=== PATIENT | female | born 1930 | race Caucasian/White ===

== ENCOUNTER 2016-09-30 11:00 | Inpatient (IN) | payer MEDICARE, BC ==
[~2016-09-30] VITALS: Ht 160 cm; Wt 70.5 kg
--- NOTE | ~2016-09-30 | DS ---
PATIENT'S NAME: DAVID LENZ [facility] AGE: 86 Y [address] ROOM: [place] [address] LOCATION: [facility] ADMIT DATE: 10/18/2016 Discharge Summary DISCHARGE DATE: 10/21/2016 FAMILY PHYSICIAN: Radha Mendez MD ATTENDING PHYSICIAN: Jeremie Montanez PRIMARY DIAGNOSIS: Degenerative joint disease of the right knee. SECONDARY DIAGNOSES: 1. IBS. 2. Anxiety. 3. Hypothyroidism. 4. Hypertension. 5. GERD. 6. Chronic kidney disease stage III. 7. Osteoporosis. PROCEDURE PERFORMED: Right total knee arthroplasty. HISTORY: The patient is an 86-year-old female, who presents with advanced right knee degenerative joint disease and associated severely compromised activities of daily living. The patient has decided to proceed with total knee arthroplasty after having been thoroughly counseled regarding the risks, benefits, limitations and alternatives. Please refer to the outpatient clinic notes and admission history and physical for this patient. HOSPITAL COURSE: The patient underwent a right total knee arthroplasty on without complications. Spinal anesthesia plus adductor canal block plus periarticular local anesthesia was utilized. The patient received 24 hours of perioperative prophylactic antibiotics and remained hemodynamically stable, neurovascularly intact throughout the entire hospital course. The postoperative prophylactic deep venous thrombosis prophylaxis consisted of Xarelto, early mobilization and pneumatic compression devices. Daily physical therapy for gait training, transfer training range of motion and quadriceps isometric exercises were received. The patient progressed well in physical therapy. On the date of discharge, 10/21/2016, the incision at the knee was healing well and showed no signs of infection. DISPOSITION: PCU. DISCHARGE ACTIVITY: The patient is to bear weight as tolerated with range of motion and quadriceps isometric exercises as instructed. The operative extremity is to be elevated at least 90% of the day. There is to be sterile 4x4 gauze dressings to the incision daily. Dr. Montanez is to be notified immediately if there is any increased pain, fevers, chills erythema or PATIENT'S NAME: DAVID LENZ [facility] AGE: 86 Y [address] ROOM: [place] [address] LOCATION: [facility] ADMIT DATE: 10/18/2016 Discharge Summary DISCHARGE DATE: 10/21/2016 FAMILY PHYSICIAN: Radha Mendez MD ATTENDING PHYSICIAN: Jeremie Montanez. The patient is to comply with gentle range of motion until followup. DISCHARGE MEDICATIONS: 1. Xarelto 10 mg 1 tablet p.o. daily x12 days for postoperative DVT prophylaxis. 2. Nucynta 50 mg 1 tablet p.o. every 3 hours p.r.n. for pain. 3. Tramadol 50 mg 1 tablet p.o. every 8 hours p.r.n. for pain. 4. Diazepam 5 mg one-half tablet p.o. every 6 hours p.r.n. for muscle spasms. 5. She is then instructed to continue all her other preadmission medications as instructed by her Internal Medicine doctor. FOLLOWUP: Followup appointment is to be with Dr. Montanez's office 1-week subsequent to dismissal from transitional care unit for her initial postoperative evaluation with x-rays of the knee and suture removal. RAY FISHER PA-C FOR MD MAURICIO ACOSTA/diana /[id number] d: 11/01/16 0438 t: 11/01/16 0913, DISCHARGE SUMMARY
--- NOTE | ~2016-09-30 | OR ---
PATIENT'S NAME: DAVID MARTINEZ [facility] AGE: 86 Y [address] ROOM: [address] [address] LOCATION: [facility] ADMIT DATE: 10/18/2016 OR/Procedure Report DISCHARGE DATE: FAMILY PHYSICIAN: Radha Mendez MD ATTENDING PHYSICIAN: LOLA MORILLO SURGEON: Lola Morillo MD CERTIFIED CONTROL SYSTEMS TECHNICIAN: 1. JOSEPH Moore. 2. Lola Washington. DATE OF PROCEDURE: 10/18/2016 PREOPERATIVE DIAGNOSIS: Degenerative joint disease, right knee. POSTOPERATIVE DIAGNOSES: 1. Degenerative joint disease, right knee. 2. Severe osteopenia. OPERATION: Right total knee arthroplasty with computer navigation. ANESTHESIA: Spinal anesthesia plus adductor canal block plus periarticular local anesthesia (ropivacaine with epinephrine). ESTIMATED BLOOD LOSS: Less than 10 mL. DRAIN: None. SPECIMEN: None. COMPLICATIONS: None. IMPLANT SYSTEM: Seadrift Triathlon. 1. Size 2 right posterior stabilized femoral component. 2. Size 2 universal modular tibial baseplate. 3. A 13 mm posterior stabilized size 2 X3 tibial polyethylene insert. 4. A 29 mm oval X3 patella component. INDICATIONS FOR SURGERY: Ms. David Martinez is an 86-year-old female who presents with advanced right knee degenerative joint disease and associated severely compromised activities of daily living. The patient has decided to proceed with knee replacement after having been thoroughly counseled regarding the associated risks, benefits, and limitations. We have specifically reviewed the risks and implications of infection, deep venous thrombosis, pulmonary embolism, mortality, neurovascular complications, blood transfusion (and associated potential for disease transmission or transfusion reaction), stiffness, instability, mechanical deterioration of the components (due to wear and or loosening), and the potential need for revision. We have also PATIENT'S NAME: DAVID MARTINEZ [facility] AGE: 86 Y [address] ROOM: [address] [address] LOCATION: [facility] ADMIT DATE: 10/18/2016 OR/Procedure Report DISCHARGE DATE: FAMILY PHYSICIAN: Radha Mendez MD ATTENDING PHYSICIAN: LOLA MORILLO emphasized the importance of active involvement and compliance with post- operative physical therapy as a means of optimizing range of motion and functional recovery. Informed consent has been granted. DESCRIPTION OF PROCEDURE: The patient was positioned supine after administration of anesthesia and prophylactic antibiotics. A well-padded pneumatic tourniquet was placed around the right proximal thigh, and the right lower extremity was prepped and draped with vigilant sterile technique. The patient's name as well as the intended operative side and procedure were confirmed with a verbal time-out involving myself, the circulating nurse, the scrub nurse, and the anesthesiologist. Examination under anesthesia demonstrated a large effusion. There was no erythema. There was no abnormal warmth. There were no active skin lesions or masses. Range of motion under anesthesia was from 20 degrees of hyperextension to 130 degrees of flexion. There was 1 cm of lateral collateral ligament laxity. There were 5 mm of medial collateral ligament laxity. The right lower extremity was elevated and exsanguinated with an Esmarch wrap, and the pneumatic tourniquet was inflated to 300mmHg. The knee was approached through a longitudinal midline incision. A medial parapatellar arthrotomy was performed and the patella was everted. Examination of the joint space demonstrated a large amount of benign-appearing translucent synovial fluid. There was a large popliteal cyst which I decompressed by dilating its point of communication with the posteromedial joint capsule. There was moderate chondrocalcinosis at the patella, femoral trochlea, medial meniscus, lateral meniscus remnant, medial tibial plateau, and medial femoral condyle. There were moderate grade 3 degenerative changes extending transversely across the equator of the patella. There were moderate grade 3 degenerative changes throughout the femoral trochlea. There was a 4 x 12 mm region of full- thickness articular cartilage loss at the posterolateral aspect of the medial femoral condyle and a 1 x 3 cm region of full-thickness articular cartilage loss at the anterolateral margin of the medial femoral condyle and distal lateral aspect of the medial femoral trochlea. There were moderate grade 3 degenerative changes at the lateral two-thirds of the medial tibial plateau. There was mild chondrocalcinosis at the medial tibial plateau. There was a large osteophyte at the lateral femoral condyle. There was a small osteophyte at the medial tibial plateau. The patient was noted to have severe generalized osteopenia. There was very thin dermis, and very loose moderately abundant subcutaneous adipose tissue. There was full-thickness loss of articular cartilage throughout the lateral femoral condyle and lateral tibial plateau. In addition, there had been erosion of approximately 5 mm of subchondral bone from the lateral tibial plateau. PATIENT'S NAME: DAVID MARTINEZ [facility] AGE: 86 Y [address] ROOM: [address] [address] LOCATION: [facility] ADMIT DATE: 10/18/2016 OR/Procedure Report DISCHARGE DATE: FAMILY PHYSICIAN: Radha Mendez MD ATTENDING PHYSICIAN: LOLA MORILLO Remnants of the menisci and cruciate ligaments were excised. The CENX computer navigation femoral tracker was pinned in place at the distal aspect of the femoral trochlea. Absence of motion between the femur and the tracking device was confirmed manually and visually. Femoral osseous landmarks were obtained in order to calibrate the computer navigation system. Landmarks included the center of rotation of the ipsilateral hip, the center-point of the distal femur, the femoral AP axis, 57 points on the medial femoral condyle articular surface, and 57 points on the lateral femoral condyle articular surface. The CENX computer navigation system was subsequently utilized to position the distal femoral resection block such that the distal femoral resection was performed perfectly perpendicular to the femoral mechanical axis. The distal femoral resection was performed with a Dormir oscillating saw. The CENX computer navigation tibial tracker was pinned in place at the anterior aspect of the tibial plateau. Absence of motion between the tibia and the tracking device was confirmed manually and visually. Tibial osseous landmarks were obtained in order to calibrate the computer navigation system. Landmarks included the center-point of the tibial plateau, the AP tibial axis, 57 points on the medial tibial plateau articular surface, 57 points on the lateral tibial plateau articular surface, the medial malleolus, and the lateral malleolus. The CENX computer navigation system was subsequently utilized to position the proximal tibial resection block such that the proximal tibial resection was performed perfectly perpendicular to the tibial mechanical axis. The proximal tibial resection was performed with a Quikly Precision oscillating saw. Perpendicularity of the tibial resection with respect to the tibial shaft axis was reconfirmed by inserting a spacer- block attached to an extramedullary guide cecy. External rotation of the anterior and posterior femoral resections was set parallel to the epicondylar axis and carefully adjusted in order to create a rectangular flexion gap. The box resection was performed with a reciprocating saw. Anterior and posterior chamfer resections were performed with the oscillating saw. Posterior condyle osteophytes were excised with an osteotome. All other osteophytes were excised with a rongeur. Resection of all remnants of the menisci was reconfirmed. Flexion and extension gaps were confirmed to be symmetric and well balanced with a spacer-block technique. The patella resection was performed with an oscillating saw such that the composite thickness of the reconstructed patella was equivalent to the thickness of the [place] patella. Patella tracking was optimal, and there was no need for a lateral retinacular release. All trial components were removed and all prepared osseous surfaces were PATIENT'S NAME: DAVID MARTINEZ [facility] AGE: 86 Y [address] ROOM: [place] [address] LOCATION: [facility] ADMIT DATE: 10/18/2016 OR/Procedure Report DISCHARGE DATE: FAMILY PHYSICIAN: Radha Mendez MD ATTENDING PHYSICIAN: LOLA MORILLO thoroughly irrigated with pulsatile saline lavage and dried prior to cementing all three components in a single stage using Quikly Simplex cement containing pre-mixed tobramycin. All extruded excess cement was removed. The entire joint space was thoroughly inspected and thoroughly irrigated with bacteriostatic pulsatile saline lavage to assure that there was no residual debris of any sort. Final range of motion was from full extension (with no residual passive hyperextension) to 130 degrees of flexion. Patella tracking was reconfirmed to be optimal. There was excellent anteroposterior stability at 90 degrees of flexion. There was 1 mm of medial lift-off to valgus stress in full extension. There was 0 mm of lateral lift-off to varus stress in full extension. The arthrotomy was closed with multiple simple and [id number] interrupted #1 Vicryl. Subcutaneous tissues were thoroughly re-irrigated with bacteriostatic pulsatile saline lavage. Subcutaneous tissues were re- approximated with simple buried interrupted #0 Vicryl sutures. The skin was closed with simple buried interrupted 2-0 Vicryl sutures followed by surgical rickey. The dressing consisted of Xeroform gauze, 4x4 gauze, ABD pads and two 6-inch Dayday Wraps. There were no intra-operative complications. MD JORDAN ACOSTA/diana /[id number] d: 10/18/16 1823 t: 10/25/16 2114, OPERATIVE SUMMARY
[2016-09-30] MEDS ORDERED: ACETAMINOPHEN1 EAC1 PO (11:03)
[2016-09-30] MEDS ORDERED: TYLENOL EXTRA500 MG PO (11:03)
[2016-09-30] MEDS ORDERED: PRILOSEC20 MG PO (11:04)
[2016-09-30] MEDS ORDERED: ZEBETA5 MG PO (11:04)
[2016-09-30] MEDS ORDERED: LEXAPRO10 MG PO (11:04)
[2016-09-30] MEDS ORDERED: LEVOTHROID(SYN75 MCG PO (11:04)
[2016-09-30] MEDS ORDERED: TUMS REGULAR ST1 TAB PO (11:05)
[2016-09-30] MEDS ORDERED: VITAMIN D-32000 UNI1 PO (11:05)
[2016-09-30] MEDS ORDERED: XANAX0.5 MG PO (11:05)
[2016-09-30] MEDS ORDERED: MIRALAX17 GM PO (11:06)
[2016-09-30] MEDS ORDERED: ACIDOPHILUS1 EAC3 PO (11:06)
--- NOTE | 2016-10-18 17:32 | NUR ---
Pt here fro PACU at 1325. She had spinal that is worn off now. VS for you will be 3rd hrly at 1910. Pt is on 1 liter of O2. She denies pain. Had norco in PACU and was nauseated at 1325. Zofran given and nausea subsided. Pt says she gets nauseated easily from pain meds. Changed to nucynta and 50 mg given at 1710 for anticipated pain. CSM WNL. Dressing dry and intact. Ice to knee. No void yet. Will get up soon. Pt has Rt upper arm power glide IV. She has taken po fluids, jello and now ordered soup. Her plan is to go to TCU when discharged. Uses IS at 1500. Does bed exercises
--- NOTE | 2016-10-19 05:37 | NUR ---
Significant Event: Dressing is clean, dry and intact. CSM WNL. Voids without difficulty. Vomited at the beginning of the shift. Zofran at 1900, feeling better now. On 1 L of oxygen nasal cannual. Nucynta last at 0455. Follow up:
--- NOTE | 2016-10-19 09:01 | NUR ---
10/18 Introduced self to pt. Instrusted her to do 100 ankle pumps/hour and 10 breaths/hour using the Incentive Spirometer. She has all equipment, plans to go to TCU. Yeimi informed Anya, Financial Operations Clerk, who said she would tell Cherrie Financial Operations Clerk.
--- NOTE | 2016-10-19 09:30 | NUR ---
RECEIVED REFERRAL THAT PATIENT WILL NEED TO GO TO TCU. I NOTIFIED AMPARO ON TCU AND SHE DOES NOT ANTICIPATE ANY BEDS UNTIL Monday10/24/16. SHE WILL [place]KC ON THIS AND GET BACK TO ME.
--- NOTE | 2016-10-19 14:30 | NUR ---
RECEIVED CALL FROM AMPARO ON TCU AND SHE TELLS ME THAT THEY WILL NOT BE ABLE TO ACCEPT DAVID THEY ARE AT 14 AND DO NOT HAVE THE STAFF TO TAKE MORE PATIENT'S. I SPOKE TO Jose Guadalupe RUIZ AND UPDATED HIM. I WILL MEET WITH PATIENT TO TALK TO HER ABOUT OPTIONS THAT ARE AVAILABLE.
--- NOTE | 2016-10-19 14:52 | NUR ---
Significant Event: pt alert and oriented. up in the room with 1 assist. hiral well. voids well no bm today. nucynta for pain. will update you with time. tsu when ready. Follow up:
--- NOTE | 2016-10-19 15:00 | NUR ---
I MEET WITH DAVID AND UPDATED HER THAT TCU IS FULL AND GAVE HER CHOICES OF SNF IN [place]. SHE TELLS ME THAT SHE DOES NOT REALLY KNOW ANYTHING ABOUT THE SNF IN [place] BUT WANTS TO GO SOME PLACE THAT "I WILL GET GOOD THERAPY." I OFFERED TO CONTACT SHE CHILDREN AND SHE DOES NOT WANT ME TO CALL THEM AT THIS TIME. PRESENTED TO HER THE OPTION OF [facility] AND SHE IS IN AGREEMENT TO THIS.I NOTIFIED [facility] SN[facility] AND SPOKE TO RAY SHE REPORTS THAT THEY HAVE A FEMALE BED. SHE WOULD LIKE FOR ME TO FAX INFO TO HER SHE WILL REVIEW IT AND GET BACK TO ME.
--- NOTE | 2016-10-20 04:41 | NUR ---
Significant Event: Dressing is clean, dry and intact. CSM WNL. Voids without difficulty. 1 assist with transfers. Slight nausea-Zofran at 0036. On room air. Valium at 2205. Nucynta last at 0337. Follow up:
--- NOTE | 2016-10-20 10:00 | NUR ---
RECEIVED CALL FROM Jose Guadalupe RUIZ HE INFORMS ME THAT HE HAS BEEN DIRECTED THAT PATIENT IS NOT TO GO TO [facility] AND WILL STAY ON [address]. I RECEIVED CALL FROM RAY AT [facility] SHE REPORTS THAT THEY WILL ACCEPT PATIENT ONCE SHE IS MEDIALLY READY FOR DISCHARGE.
--- NOTE | 2016-10-20 17:31 | NUR ---
Significant Event: Ambulates with SBA and walker. Dressing changed, rickey intact. Ez wrap ice at all times. Voids without difficulty. No BM. Nucynta last at 0950, Tylenol 1000mg last at 1701. C/O nausea throughout shift last Zofran at 1327, Refused offer of Phenegran as she would rather have at bedtime because it will make her too sleepy. Titrated to room air while awake. Hypotensive this am after shower. Follow up:
--- NOTE | 2016-10-21 04:14 | NUR ---
Shift Summary: Patient can ambulate with one assist. Good pain control with Nycenta. Had nausea at beginning of shift. Relieved with Zofran. Patient passing gas and states she feels like she needs to have a BM. Doesn't have any PRN anticonstipation medication ordered. Patient refused prune juice.
--- NOTE | 2016-10-21 09:00 | NUR ---
RECEIVED CALL FROM LEONEL ON TCU SHE INFORMS ME THAT THEY CAN ACCEPT PATIENT TODAY TO TCU BETWEEN [phone]. I SPOKE MECCA LUX ON 3N AND UPDATED HER. TURNER RUIZ IS AWARE OF THIS AND WILL COMPLETE THE ORDERS. PATIENT'S PRIMARY NURSE WILL INFORM PATIENT AND UPDATED HER.
--- NOTE | 2016-10-21 09:40 | NUR ---
PT IS ALERT AND ORIENTED. UP WITH 1 ASSIST USES WALKER AND GAIT BELT. TAKES TYLENOL FOR PAIN ALSO DOES NUCYNTA IF NEEDED. DRESSING TO RT KNEE INTACT. ICE TO KNEE AT ALL TIMES. COOPERTIVE AND PLEASANT. LIVES AT HOME ALONE.
--- NOTE | 2016-10-21 11:27 | NUR ---
PT TRANSFERED TO TCU PER WHEELCHAIR.
== END 2016-10-21 10:45 | DRG 470 ==
LOC: G3N 10-18 06:46
PROVIDERS: ADMIT Orthopaedic Surgery
PROC: 0SRC0JZ Replacement of Right Knee Joint with Synthetic Substitute, Open Approach (ICD-10-PCS; principal; 2016-10-18)
DX: M17.11 Unilateral primary osteoarthritis, right knee (principal); I12.9 Hypertensive chronic kidney disease with stage 1 through stage 4 chronic kidney disease, or unspecified chronic kidney disease; F41.9 Anxiety disorder, unspecified; K58.9 Irritable bowel syndrome, unspecified; N18.9 Chronic kidney disease, unspecified; E03.9 Hypothyroidism, unspecified; L25.9 Unspecified contact dermatitis, unspecified cause; M85.80 Other specified disorders of bone density and structure, unspecified site
CPT/HCPCS: C1713; C1751; C1776; J1100; J1170; J1885; J2250; J2405; J2795; J3370; J7050; J7120

== ENCOUNTER 2016-10-21 10:46 | Inpatient (IN) | payer MEDICARE, BC ==
[~2016-10-21] VITALS: Ht 160 cm; Wt 71.7 kg
--- NOTE | ~2016-10-21 | DS ---
PATIENT'S NAME: DAVID LENZ [facility] AGE: 86 Y [address] ROOM: [facility] [place] [place], [place] [address] LOCATION: ADMIT DATE: 10/21/2016 Discharge Summary DISCHARGE DATE: 11/01/2016 FAMILY PHYSICIAN: Radha Mendez MD ATTENDING PHYSICIAN: Jeremie Montanez PRIMARY DIAGNOSES: At this hospitalization are, 1. Status post right total knee arthroplasty. 2. Essential hypertension. 3. Anxiety. 4. Need for physical therapy. SUMMARY OF HOSPITALIZATION: This is an 86-year-old female, who was admitted to the transitional care unit after an uneventful right total knee arthroplasty. The patient received 10 days of physical and occupational therapy. She was maintained on Xarelto for DVT prophylaxis. Today, she is ready for discharge, and will follow up with her orthopedic surgeon's office, Dr. Montanez. She did have a transient rash that developed on her back, which was felt to be contact dermatitis and improved with topical hydrocortisone cream. Time dedicated to this patient's encounter is 15 minutes. MD MIKE RILEY/diana /[id number] d: 11/02/16 0024 t: 11/06/16 1532, DISCHARGE SUMMARY
[~2016-10-21 10:46] MED LIST: ACETAMINOPHEN1 EAC1 PO; ACIDOPHILUS1 EAC3 PO; LEVOTHROID(SYN75 MCG PO; LEXAPRO10 MG PO; MIRALAX17 GM PO; PRILOSEC20 MG PO; TUMS REGULAR ST1 TAB PO; TYLENOL EXTRA500 MG PO; VITAMIN D-32000 UNI1 PO; XANAX0.5 MG PO; ZEBETA5 MG PO
--- NOTE | 2016-10-21 17:38 | NUR ---
D: Nursing admission I: Nursing interventions provided to support the patient's individual plan of care R: MOBILITY-- up with standby assist x1 gait belt and walker NUTRITION-- regular SKIN/INCISIONS/WOUNDS-- right knee, dressing change daily dry gauze SELF CARES-- staff to assist as needs BOWEL/BLADDER-- continent RESPIRATORY-- keep sats greater than 90%, no o2 on admission PAIN-- right knee PSYCHOSOCIAL-- pleasent and cooperative COGNITION-- oriented x3 SPECIAL NEEDS-- BLEEDING-- xarelto x 12 days SENSORY IMPAIRMENTS/DENTAL NEEDS: TEACHING NEEDS-- INFECTION CONCERNS: incision RISK FOR ELOPEMENT: none NEED FOR BED/MOVEMENT ALARM: none DISMISSAL PLANS: home alone Other: P: Current plan of care reviewed and updated 10/21/16 Jason Antunez rn
--- NOTE | 2016-10-22 01:47 | NUR ---
Significant Event: Patient is alert and oriented. Answers questions appropriately. Pleasant and cooperative with cares. Dressing to right knee is dry and intact. Vital signs stable. Transfers wiith one assist with gait belt and walker. Patient had concerns of pain to knee and anxiety at HS, given tylenol and valium as ordered. Follow up:
--- NOTE | 2016-10-22 15:06 | NUR ---
Significant Event: Patient alert and oriented. Up with 1 assist. Right knee has rickey. Guaze with tubigrip changed today. Taking Tylenol and Nucenta for pain. Follow up:
--- NOTE | 2016-10-23 04:18 | NUR ---
Significant Event:A/O. 1 assist with gaitbelt and walker. Shower this evening. [place] to Right knee intact covered with guaze and tubigrip. Vital signs stable on room air. Nucynta and valium at HS for pain relief. Call light within reach. Follow up:
--- NOTE | 2016-10-23 16:03 | NUR ---
Significant Event: Patient alert and oriented. 1 assist. Taking Nucenta and Tylenol for pain. Right knee has rickey. guaze and tubigrip changed. Follow up:
--- NOTE | 2016-10-24 01:50 | NUR ---
Significant Event:A/O. 1 assist with gb and walker. Royer hose off hs. Foot pumps on. Ice to right knee for comfort. Ferguson intact, no drainage. covered by guaze and tubigrip. Nucynta and valium at HS for pain control. Call light within reach. Follow up:
--- NOTE | 2016-10-24 12:43 | NUR ---
Student nurse provided patient cares from 0600 to 1230. Mima De Leon RN, [facility] Instructor
--- NOTE | 2016-10-24 14:39 | NUR ---
Significant Event:A/0 X 3, NUCENTA REQUESTS FOR PAIN, 1 ASSIST WALKER/GB, SHOWER THIS AM BY OT, LUMA TO L)KNEE DRY AND INTACT, ICE TO KNEE. GUAZE AND TUBIGRIP TO KNEE. DEVANG HOSE ON. Follow up:
--- NOTE | 2016-10-24 16:18 | NUR ---
86 y/o (spouse March 2015) from [place] who lives alone in a tri-level home in [place]. Patient is followed by and Hospitalists after having elective r) knee replacement surgery. Patient admitted to TCU from [address] [place] [address] on Monday10-21-16 for continued OT/PT. She is a full code. She has medicare and a supplemental policy. She does not have a Retail Client Manager Care policy. Patient has a customer engagement representative q other week. She has a quad cane, standard walker, 4 wheeled walker with bench seat, shower chair with arms and back. She uses the stairs in her garage and there is no railing. D-i-l from [place] was present and SW suggested a railing get installed prior to d/c. Patient has a son in [place] and a son in [place]. Her who a year and a half ago had 5 children. His daughter from lymphoma and his other 4 kids all live out of state. patient assumed she could have HHC for therapy upon d/c. SW explained that prefers outpatient therapy upon d/c. Patient states her had HHC so she thought she could have HHC (he did not have a knee replaced). patient indicates her neighbors are helpful but all work residency coordinator. patient states she has a [employer] affiliation, however did not attend for a long time due to her husbands illness and she stayed home to care for him. discussed the [employer] bus or Taxi to get patient to outpatient therapy, but patient not open to this option and wants HHC. Explained to [id number] and patient that and/or Guy RUIZ would give further direction re: HHC vs outpatient therapy. Also discussed option of respite care at an [facility], where the room is furnished and she could go stay for 1-4 weeks for recovery, once her TCU stay is completed. Out of pocket cost would be approx $125 per day. Patient then talked about selling her home and having an auction and moving to a NH. D-I-L supportive of SW suggestions and SW reminded patient we will take it a day at a time. Therapies estimate d/c could be Monday10-28-16 to home alone.
--- NOTE | 2016-10-25 04:10 | NUR ---
Significant Event:A/O. 1 assist with gaitbelt and walker. R) knee stapled, well approximated covered with guaze and tubigrip. Ice applied for comfort. Royer hose off at HS. Nucynta and valium at HS for pain control. Call light within reach. Follow up:
--- NOTE | 2016-10-25 13:39 | NUR ---
Significant Event: Alert/oriented. VSS. 1a walker/gb. Right knee incision with rickey approx, dry gauze and tubigrip CDI. Nucynta prn for pain control this shift. No c/o nausea or vomitting this shift. Follow up:
--- NOTE | 2016-10-26 01:47 | NUR ---
Significant Event: Patient is alert and oriented. Transfers with one assist with gait belt and walker. Dressing to right knee clean, dry and intact. Ice applied at all times. DEVANG hose off at HS. Nucynta and valium givenat HS. Follow up:
--- NOTE | 2016-10-26 12:20 | NUR ---
Significant Event: Alert/oriented. VSS. Right knee incision with rickey covered with dry gauze and tubigrip. Copius ice packs to right knee this shift. TEDs on. C/o increase pain to left leg; education on compensation and using good leg and shoulders more during therapy. [place] updated regarding increase pain, states to keep educated patient and communicate with therapy to educate patient, continue with prn pain medications. Plan for discharge on Monday to home with outpatient therapy. Follow up:
[2016-10-26 20:44] LABS: ADENOVIRUS F 40/41 Not Detected (Not Detect); ASTROVIRUS Not Detected (Not Detect); C DIFFICILE TOXIN A/B Not Detected (Not Detect); CAMPYLOBACTER SPECIES Not Detected (Not Detect); CRYPTOSPORIDIUM Not Detected (Not Detect); CYCLOSPORA CAYETANENSIS Not Detected (Not Detect); E. COLI (EPEC) Not Detected (Not Detect); E. COLI (ETEC) Not Detected (Not Detect); E. COLI (STEC) Not Detected (Not Detect); ENTAMOEBA HISTOLYTICA Not Detected (Not Detect); GIARDIA LAMBLIA Not Detected (Not Detect); NOROVIRUS GI/ GII Not Detected (Not Detect); PLESIOMONAS SPECIES Not Detected (Not Detect); ROTAVIRUS A Not Detected (Not Detect); SALMONELLA SPECIES Not Detected (Not Detect); SAPOVIRUS Not Detected (Not Detect); SHIGELLA AND EIEC Not Detected (Not Detect); VIBRIO CHOLERAE Not Detected (Not Detect); VIBRIO SPECIES Not Detected (Not Detect); YERSINIA ENTEROCOLITICA Not Detected (Not Detect)
--- NOTE | 2016-10-27 01:22 | NUR ---
Significant Event: Patient is alert and oriented. Pleasant and cooperative with cares. Transfers with one assist with gait belt and walker. Dressing to right knee clean and intact. Ice applied at all times. DEVANG hose off at HS. Nucynta and valium given at HS. Follow up:
--- NOTE | 2016-10-27 12:48 | NUR ---
call rec'd from jaovhlff-cu-upo Candi of [place] [phone]. She inquired about d/c plan and outpatient therapy vs [facility]. Explained the rationale for outpatient therapy and she voiced understanding. D-i-l states her is retired and will drive from [place] to take his mom to therapy. Other son in [place] may be able to work around her therapy schedule as well. # for [employer] [facility] [employer] given to minal-l to call to see if anyone available for hire, to transport patient to therapy. D-i-l states patient no longer drives. team meeting this am and OT/PT recommend dismissal mid next week, like Monday11-02-16. Patient has had increased complaints of pain the past 2 days. Has poor activity tolerance. Has not done stairs yet or standing exercises. Also in isolation for diarrhea/flu like symptoms, should be out of isolation tomorrow. [place] will come out today. SW Updated d-i-l Candi to teams recommendations for dismissal mid next week, if medically ok to d/c at that time. JosepiJovanil in agreement to plan. Harmony Jennings to be delivered daily to patients room.
--- NOTE | 2016-10-27 16:51 | NUR ---
Significant Event:A/0 X 3, 1 ASSIST GB/WALKER, SHOWER THIS AM WITH OT, LUMA OUT KNEE- BENZOIN AND STERISTRIPS PLACED, 1+EDEMA DEVANG HOSE ON, PT/OT SERVICES, NUCENTA GIVEN FOR PAIN REQUESTED. Follow up:
--- NOTE | 2016-10-28 02:18 | NUR ---
Significant Event: Up with 1 assist/gb/walker. Selene are out and steri strips in place well approximated. Refuses foot pumps @ night. Requested [employer] @ [phone]. Wears DEVANG hose. VSS. Eats well. Follow up:
--- NOTE | 2016-10-28 12:12 | NUR ---
therapists recommends a FWW for a short time after d/c. SW contacted [employer] and left a message to see if they have one available to use. JUSTIN contacted luis Christopher and she will also explore if local charities or friends have a FWW for patient to borrow upon d/c. Candi has phone # and address for [employer].
--- NOTE | 2016-10-28 12:42 | NUR ---
Significant Event: Pt is a/o x 3, cooperative with cares. Up with one assist; mostly supervision with ADLS. V/S stable. Steri strips intact, no drnge, CSM WNL. Out of isolation today. Gave prn nucynta at 0853 for prophylaxis prior to therapy. Follow up:
--- NOTE | 2016-10-29 02:12 | NUR ---
Significant Event: Does very well. Up with standby assist. VSS. Rt knee has steri strips and uses ice packs. Pain very well controlled with Nucynta. Is anxious to go home. Follow up:
--- NOTE | 2016-10-29 12:25 | NUR ---
Significant Event: Alert/oriented. VSS. 1a walker/gb. Right knee incision with steri strips intact. Takes nucynta this am prior to therapy. TEDs on bilater lower extremeties. Ice to right knee on/off throughout this shift. C/o burning and discomfort with urination, order to obtain UA, hat and specimen cup in bathroom. Follow up:
[2016-10-29 13:16] LABS: BILIRUBIN URINE NEGATIVE (NEGATIVE); BLOOD URINE NEGATIVE /UL (NEGATIVE); COLOR URINE YELLOW (YELLOW); GLUCOSE URINE NEGATIVE (NEGATIVE); KETONE URINE NEGATIVE (NEGATIVE); LEUKOCYTES URINE NEGATIVE /UL (NEGATIVE); NITRITE URINE NEGATIVE (NEGATIVE); PROTEIN URINE NEGATIVE (NEGATIVE); TURBIDITY URINE CLEAR (CLEAR); UROBILINOGEN URINE 1 mg/dL (NORMAL)
--- NOTE | 2016-10-30 00:50 | NUR ---
Significant Event: Alert & oriented. Up with 1 minimal assist/gb/walker and does amazing well. Does her own cares. Steri strips to rt knee. Uses ice to knee. Had a Nucynta @ hs that was about 2230 & 2.5mg of valium. She rested well tonight. Repositions self in bed. Refuses foot pumps @ hs. Follow up:
--- NOTE | 2016-10-30 12:44 | NUR ---
Significant Event: Alert/oriented. VSS. 1a walker/gb. Right knee steri strips intact. TEDs on this am. Ice packs to right knee on/off throughout shift. Takes prn nucynta this am for anticipated pain. Follow up:
--- NOTE | 2016-10-31 01:42 | NUR ---
Significant Event: Alert & oriented. Had a Nucynta @ valium at about 2230 when she went to bed and only rated pain a 2. She walks very well, but needs reminded to not walk on the side of her foot as was her habit. Ice used and wears TEDS. Refuses pumps to legs/feet Follow up:
--- NOTE | 2016-10-31 12:07 | NUR ---
Student nurse provided patient cares from 0600 to 1215. Mima De Leon RN, [facility] Instructor
--- NOTE | 2016-10-31 13:51 | NUR ---
Significant Event: Patient alert and oriented. Right knee has steristrips. Taking Nucenta for pain. Red raised scabbed bumps to back. MD aware. No new orders. Follow up:
--- NOTE | 2016-10-31 16:05 | NUR ---
resource nurse reports office cannot see patient on Monday11-02-16. Therapy indicates patient could d/c on Monday tomorr, or . Resource nurses states office could see patient on or . SW contacted patient who states she will visit with her children. patient voices frustration with the change and "disorganized mess". JUSTIN contacted d-i-l Candi who states she will visit with her and with the brother and d-i-l in [place] and decide if they can transport patient home on Monday, , or . Candi states family will let nurses station know of their decision, hopefully yet tonight.
--- NOTE | 2016-11-01 01:16 | NUR ---
D: Nursing Discharge Summary From 10/21/16 to 11/01/16 I: Nursing interventions provided to support the patient's individual plan of care R: MOBILITY-- Independent with walker NUTRITION-- Regular diet as tolerated SKIN/INCISIONS/WOUNDS-- Right knee surgical incision, well approximated, steri strips coming loose. SELF CARES-- Independent with cares, occassional set up required BOWEL/BLADDER-- Continent RESPIRATORY-- Room air PAIN-- Nucynta and valium for pain and discomfort control PSYCHOSOCIAL-- Family attentive to wants and needs COGNITION-- Alert and oriented SPECIAL NEEDS-- Outpatient therapy BLEEDING-- Xarelto daily james DVT Prophylaxsis SENSORY IMPAIRMENTS/DENTAL NEEDS: TEACHING NEEDS-- Signs and symptoms of infection=redness, warmth, drainage, fever INFECTION CONCERNS: Handwashing RISK FOR ELOPEMENT: None NEED FOR BED/MOVEMENT ALARM: None DISMISSAL PLANS: Home with outpatient therapy Other: Appt with Dr. Montanez @ 0269 P: Current plan of care reviewed and updated Dai LUX 11/01/16
[2016-11-01] MEDS ORDERED: COLACE100 MG PO (08:29)
[2016-11-01] MEDS ORDERED: VALIUM5 MG PO (08:30)
[2016-11-01] MEDS ORDERED: NUCYNTA50 MG PO (08:31)
[2016-11-01] MEDS ORDERED: HYDROCORT 1% CR30 GM TOP (08:52)
--- NOTE | 2016-11-01 10:31 | NUR ---
Significant Event: Patient alert and oriented. Up ad ramon in room. Patient dressed herself and applied anya stockings herself this morning. Steristrips to right knee. Will discharge to home today with an appointment to see following discharge. Nucenta given for pain this morning Follow up:
== END 2016-11-01 11:45 | disposition disaster alternative care site (69) | DRG 561 ==
LOC: GSNF 10:46
PROVIDERS: Family Medicine; Nurse Practitioner Family; ADMIT Orthopaedic Surgery
DX: Z47.1 Aftercare following joint replacement surgery (principal); N18.3 Chronic kidney disease, stage 3 (moderate); I12.9 Hypertensive chronic kidney disease with stage 1 through stage 4 chronic kidney disease, or unspecified chronic kidney disease; Z96.651 Presence of right artificial knee joint; E03.9 Hypothyroidism, unspecified; F41.9 Anxiety disorder, unspecified; L25.9 Unspecified contact dermatitis, unspecified cause; K21.9 Gastro-esophageal reflux disease without esophagitis; K58.9 Irritable bowel syndrome, unspecified